=== PATIENT | male | born 1975 | race Caucasian/White ===

== ENCOUNTER 2016-11-08 11:15 | Emergency (ER) | payer OTHER ==
[~2016-11-08] VITALS: Ht 182.9 cm; Wt 116.5 kg
[~2016-11-08 11:15] MED LIST: ALPR-138 PO; LORT7.5T3 PO; PROM25SU8 PO
[2016-11-08 11:25] VITALS: BP 130/100; PULSE 96; RESP 18; TEMP 98.4; O2SAT 96
--- NOTE | 2016-11-08 12:32 | PD ---
HPI . left eye redness and discharge for a few days Chief Complaint: Eye Problems/Injury Time Seen by Provider: 12:32 Travel History International Travel<30 days: No Contact w/Intl Traveler<30days: No Traveled to known affect area: No History of Present Illness HPI 41-year-old male with no significant past medical history here with complaints of left eye redness and irritation along with discharge for the past few days. Patient says he does not have any eye pain or foreign body sensation. He says he wakes up in the morning and his eyes covered in what he describes as crusts. He denies any visual changes. He does not wear contact lenses. PFSH Past Medical History Anxiety: Yes Headaches: Yes Social History Alcohol Use: Yes (RARELY) Tobacco Use: No Substance Use: No Allergies-Medications (Allergen,Severity, Reaction): Coded Allergies: No Known Allergies (Verified , 11/08/16) Reported Meds & Prescriptions Reported Meds & Active Scripts Active Ocuflox Opth Drops (Ofloxacin Opth Drops) 0.3 % Drops 2 Drop LEFT EYE QID 7 Days Review of Systems General / Constitutional: No: Fever Eyes: Positive: Drainage, Redness, Tearing, No: Visual changes HENT: No: Headaches Cardiovascular: No: Chest Pain or Discomfort Respiratory: No: Shortness of Breath Gastrointestinal: No: Abdominal Pain Genitourinary: No: Dysuria Musculoskeletal: No: Pain Skin: No Rash Neurologic: No: Weakness Psychiatric: No: Depression Endocrine: No: Polydipsia Hematologic/Lymphatic: No: Easy Bruising Physical Exam Narrative GENERAL: AAO x 3, no acute distress, Well-nourished, well-developed patient. SKIN: Warm and dry. No visible rashes or bruising. HEAD: Normocephalic and atraumatic. EYES: No scleral icterus. No injection or drainage. EOM intact, PERRLA, conjunctiva on the left is injected and erythematous, ENT: No nasal drainage noted. pink. Airway patent. NECK: Supple, trachea midline. No JVD. No lymphadenopathy CARDIOVASCULAR: Regular rate and rhythm without murmurs, gallops, or rubs. RESPIRATORY: Breath sounds equal bilaterally. No accessory muscle use. No rhonchi or rales. GASTROINTESTINAL: visual inspection normal. EXTREMITIES: No cyanosis or edema. BACK: Nontender without obvious deformity. No CVA tenderness. PSYCH: AAO x 3, normal affect. Data Data Last Documented VS Vital Signs Date Time Temp Pulse Resp B/P Pulse Ox O2 Delivery O2 Flow Rate FiO2 11/08/16 11:25 98.4 96 18 130/100 96 MDM Medical Decision Making Medical Screen Exam Complete: Yes Emergency Medical Condition: Yes Medical Record Reviewed: Yes Differential Diagnosis Bacterial conjunctivitis, viral Hepatitis less likely foreign body, less likely corneal abrasion, Narrative Course 41-year-old male with no significant past medical history here with complaints of left eye redness and irritation along with discharge for the past few days. Patient says he does not have any eye pain or foreign body sensation. He says he wakes up in the morning and his eyes covered in what he describes as crusts. He denies any visual changes. He does not wear contact lenses. Patient seen and examined. He appears to have a bacterial conjunctivitis. We will go ahead and treat with antibiotic eyedrops. He was advised to keep his eyes clean with warm compresses. He was advised to practice good hand hygiene. Advise follow-up with ophthalmology if issues persist. Patient verbalized understanding of instructions, questions were answered, and thanked me for their care. I advised them if their condition worsens, please return to the nearest emergency room for further care. Diagnosis Primary Impression: Bacterial conjunctivitis of left eye Patient Instructions: Conjunctivitis (ED), General Instructions Additional Instructions: Apply warm compresses to your eye to clear the crust. Refrain from rubbing the eye. If issues persists, please see an rigging and controls aircraft mechanic. If you develop any sudden changes in vision such as loss or blurring, please go to the nearest emergency department. Please return to emergency department if your symptoms return or worsen. Follow up with your primary care provider. Take medications as prescribed. Med/Other Pt SpecificInfo: Prescription(s) given Scripts Ofloxacin Opth Drops (Ocuflox Opth Drops)0.3 % Drops2 Drop LEFT EYE QID 7 Days Ref 0 Prov:Rex Carpio MD 11/08/16 Disposition: 01 DISCHARGE HOME Condition: Stable Jenny Watkins Nov 08, 2016 12:32
[2016-11-08] MEDS ORDERED: OCUF0.3D LEFT EYE (12:40)
== END 2016-11-08 12:55 | disposition home or self-care (01) ==
LOC: PHED 11:15
DX: H10.33 Unspecified acute conjunctivitis, bilateral (principal)
CPT/HCPCS: 99282